=== PATIENT | female | born 2000 | race Two or more races ===

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

== ENCOUNTER 2021-04-17 11:42 | Emergency (ER) | payer BC ==
[2021-04-17 21:01] LABS: SARS-CoV-2 PCR by NAA DETECTED (NotDetected)
== END 2021-04-17 13:15 | disposition home or self-care (01) ==
LOC: MADERS 11:42
DX: U07.1 COVID-19 (principal); E66.9 Obesity, unspecified; Z68.54 Body mass index [BMI] pediatric, 95th percentile for age to less than 120% of the 95th percentile for age
CPT/HCPCS: 99283; U0003; U0005

== ENCOUNTER 2021-09-28 08:19 | Emergency (ER) | payer BC, OTHER ==
[2021-09-28 08:50] LABS: Pregnancy Test - Urine (BHCG) Negative (Negative); Pregu Control Background? CLEAR/WHITE (CLR/WHITE); Pregu Control Bar Appear? YES (CONTROL BAR); Specific Gravity 1.023 (1.002-1.036)
[2021-09-28] MEDS ORDERED: Ketorolac Tromethamine 30 MG/ML VIAL ONE (08:51)
[2021-09-28] MEDS ORDERED: Ondansetron PF 4 MG/2 ML Vial ONE (08:51)
[2021-09-28] MEDS ORDERED: Lactated Ringer's 1,000 ML ONE (08:51)
[2021-09-28] MEDS ORDERED: diphenhydrAMINE 50 MG/ML VIAL ONE (09:24)
[2021-09-28] MEDS ORDERED: Prochlorperazine 10 MG/2 ML VIAL ONE (09:24)
== END 2021-09-28 10:08 | disposition home or self-care (01) ==
LOC: MADERS 08:19
DX: G43.909 Migraine, unspecified, not intractable, without status migrainosus (principal); R11.2 Nausea with vomiting, unspecified
CPT/HCPCS: 81025; 94760; 96361; 96374; 96375; J0780; J1200; J1885; J2405; J7120

== ENCOUNTER 2022-05-06 13:20 | Emergency (ER) | payer BC, OTHER ==
[2022-05-06 14:02] LABS: Pregnancy Test - Urine (BHCG) POSITIVE (Negative); Pregu Control Background? CLEAR/WHITE (CLR/WHITE); Pregu Control Bar Appear? YES (CONTROL BAR); Specific Gravity 1.025 (1.002-1.036)
[2022-05-06 14:04] LABS: Bilirubin Negative (Negative); Blood, Urine Negative (Negative); Clarity Clear (Clear); Glucose, Urine (Dipstick) Negative (Negative); Ketone, Urine 15 mg/dL (Negative); Leukocyte Negative (Negative); Nitrite Negative (Negative); Protein, Urine (Dipstick) Negative (Neg-Trace); Urobilinogen 0.2 mg/dL (Less than 2); pH, Urine 5.5 (5.0-9.0)
[2022-05-06 14:06] LABS: Specific Gravity, Urine 1.025 (1.002-1.036)
== END 2022-05-06 15:12 | disposition home or self-care (01) ==
LOC: MADERS 13:20
DX: O99.891 Other specified diseases and conditions complicating pregnancy (principal); R10.30 Lower abdominal pain, unspecified; O99.351 Diseases of the nervous system complicating pregnancy, first trimester; G43.909 Migraine, unspecified, not intractable, without status migrainosus; Z3A.01 Less than 8 weeks gestation of pregnancy
CPT/HCPCS: 36415; 81003; 81025; 84702; 86900; 86901; 99284

== ENCOUNTER 2022-08-25 11:30 | Emergency (ER) | payer BC, OTHER ==
[2022-08-25] MEDS ORDERED: Ondansetron PF 4 MG/2 ML Vial ONE (12:18)
[2022-08-25] MEDS ORDERED: Sodium Chloride 0.9% 1,000 ML ONE (12:18)
[2022-08-25 12:28] LABS: ALT (SGPT) 21 U/L (8-55); AST (SGOT) 16 U/L (5-34); Albumin 3.8 g/dL (3.5-5.0); Alkaline Phosphatase 42 U/L (40-100); Anion Gap 13 mmol/L (10-20); BUN (Urea Nitrogen) 6 mg/dL (7.0-18.7); Bilirubin, Total 0.3 mg/dL (0.2-1.2); Calc. Creatinine Clearance 0 mL/min (70-130); Calcium 8.9 mg/dL (7.8-10.44); Carbon Dioxide 20 mmol/L (22-29); Chloride 107 mmol/L (98-107); Estimated GFR 136; Globulin 2.5 g/dL (2.4-3.5); Glucose 92 mg/dL (70-105); Potassium 3.7 mmol/L (3.5-5.1); Protein, Total 6.3 g/dL (6.0-8.3); Sodium 136 mmol/L (136-145)
[2022-08-25 12:39] LABS: #Basophils 0.1 thou/uL (0.0-0.2); #Eosinphils 0.1 thou/uL (0.0-0.7); #Lymphocytes 1.7 thou/uL (1.20-3.40); #Monocytes 0.6 thou/uL (0.11-0.59); #Neutrophils 8.3 thou/uL (1.40-6.50); %Basophils 0.6 % (0.0-1.0); %Eosinophils 0.6 % (0.0-10.0); %Lymphocytes 15.6 % (28.0-48.0); %Monocytes 5.8 % (0.0-4.0); %Neutrophils 77.4 % (31.0-61.0); Mean Corpuscular Hemoglobin 30.8 pg (25.0-35.0); Mean Corpuscular Volume 90.5 fl (78.0-98.0); Mean Platelet Volume 7.9 fL (7.4-10.4); Platelet Count 243 10x3/uL (130-400); RBC Distribution Width 12.5 % (11.5-14.5); Red Blood Cell (RBC) Count 4.23 mill/uL (4.00-5.20); White Blood Cell (WBC) Count 10.7 10x3/uL (4.8-10.8)
[2022-08-25 13:39] LABS: Bilirubin Negative (Negative); Blood, Urine Negative (Negative); Glucose, Urine (Dipstick) Negative (Negative); Ketone, Urine Negative (Negative); Leukocyte Negative (Negative); Nitrite Negative (Negative); Pregnancy Test - Urine (BHCG) POSITIVE (Negative); Protein, Urine (Dipstick) Negative (Neg-Trace); Specific Gravity 1.015 (1.002-1.036); Specific Gravity, Urine 1.015 (1.005-1.030); Urobilinogen 0.2 mg/dL (Less than 2)
[2022-08-25 13:40] LABS: Pregu Control Background? CLEAR/WHITE (CLR/WHITE); Pregu Control Bar Appear? YES (CONTROL BAR)
[2022-08-25 13:46] LABS: Bacteria/HPF 1+ HPF (None Seen); CAUTI Indications for Culture Pregnancy; Clarity Hazy (Clear); RBC/HPF 0-3 HPF (0-3); Squamous Epithelial 0-3 HPF (0-3); WBC/HPF 0-3 HPF (0-3)
[2022-08-25 13:47] LABS: Urine Culture Reflex Yes Yes
== END 2022-08-25 14:00 | disposition home or self-care (01) ==
LOC: MADERS 11:30
DX: O99.891 Other specified diseases and conditions complicating pregnancy (principal); R55 Syncope and collapse; Z3A.00 Weeks of gestation of pregnancy not specified
CPT/HCPCS: 80053; 81001; 81025; 85025; 87086; 93005; 96361; 96374; J2405; J7050